=== PATIENT | male | born 1960 | race African-American/Black ===

== ENCOUNTER → 2018-10-15 | Outpatient (CLI) | payer OTHER ==
[2018-10-15 13:13] LABS: ALT 34 U/L (21-72); AST 19 U/L (17-59); Albumin 4.4 g/dL (3.5-5.0); Albumin/Globulin Ratio 1.7; Alkaline Phosphatase 92 U/L (38-126); Anion Gap 12 mmol/L; Blood Urea Nitrogen 17 mg/dL (9-20); Calcium 10.1 mg/dL (8.4-10.2); Carbon Dioxide 25 mmol/L (22-30); Chloride 99 mmol/L (98-107); Globulin 2.6 g/dL; Glucose 496 mg/dL (74-99); Magnesium 1.8 mg/dL (1.6-2.3); Potassium 5.2 mmol/L (3.5-5.1); Sodium 136 mmol/L (137-145); Total Bilirubin 0.3 mg/dL (0.2-1.3)
[2018-10-15 13:30] LABS: Basophils % (A) 1 %; Eosinophils # (A) 0.1 k/uL (0-0.7); Eosinophils % (A) 4 %; HCT 42.9 % (39.0-53.0); HGB 14.3 gm/dL (13.0-17.5); Lymphocytes # (A) 1.2 k/uL (1.0-4.8); Lymphocytes % (A) 36 %; MCH 29.2 pg (25.0-35.0); MCHC 33.3 g/dL (31.0-37.0); MCV 87.6 fL (80.0-100.0); Mean Platelet Volume 7.1; Monocytes # (A) 0.2 k/uL (0-1.0); Monocytes % (A) 6 %; Neutrophils # (A) 1.6 k/uL (1.3-7.7); Neutrophils % (A) 50 %; Platelet Count 257 k/uL (150-450); RBC 4.89 m/uL (4.30-5.90); RDW 12.9 % (11.5-15.5); WBC 3.3 k/uL (3.8-10.6)
[2018-10-15 17:07] LABS: Cholesterol 131 mg/dL (<200); HDL Cholesterol 35 mg/dL (40-60); LDL Cholesterol,Calculated 56 mg/dL (0-99); Triglycerides 202 mg/dL (<150)
== END | disposition home or self-care (01) ==
LOC: LABWHC1 12:01
PROVIDERS: ATTEND Family Medicine
DX: E11.65 Type 2 diabetes mellitus with hyperglycemia (principal); I10 Essential (primary) hypertension
CPT/HCPCS: 36415; 80053; 80061; 82009; 82607; 82746; 83735; 85025

== ENCOUNTER 2020-02-17 04:51 | Emergency (ER) | payer OTHER ==
[2020-02-17 05:01] VITALS: RESP 18
--- NOTE | 2020-02-17 05:07 | ED ---
Chest Pain HPI - General Chief Complaint: Chest Pain Stated Complaint: chest pain Time Seen by Provider: 02/17/20 05:05 Source: patient Mode of arrival: ambulatory Limitations: no limitations - History of Present Illness Initial Comments: This patient is 59-year-old man who presents to be evaluated for left-sided chest pain and left hand tingling. The patient states the symptoms came on approximately 90 minutes ago while he was trying to go to sleep. The patient states she also had a similar episode within the past week. The patient states the chest pain felt like at tightness, mild, and lasted 20-30 minutes. He did take two 81 mg aspirin, and the symptoms did resolve. He states he feels well now. No associated symptoms. MD Complaint: chest pain Onset/Timin -: minutes(s) Onset: during rest Pain Location: left chest Pain Radiation: LUE Severity: mild Quality: tightness Consistency: now resolved Improves With: other (Aspirin) Worsens With: nothing Treatments Prior to Arrival: aspirin - Related Data Home Medications Medication Instructions Recorded Confirmed Ibuprofen [Motrin] 800 mg PO Q8HR PRN 02/23/15 05/10/16 Omeprazole [PriLOSEC] 20 mg PO DAILY 02/23/15 05/10/16 metFORMIN HCL 1,000 mg PO AC-BID 02/23/15 05/10/16 Baclofen [Lioresal] 10 mg PO BID PRN 05/10/16 05/10/16 lisinopriL [Zestril] 10 mg PO DAILY 05/10/16 05/10/16 sitaGLIPtin [Januvia] 25 mg PO DAILY 05/10/16 05/10/16 Previous Rx's Medication Instructions Recorded Hydrocodone/Acetaminophen [[place] 1 - 2 each PO Q6HR PRN #20 tab 05/12/16 5-325] Allergies Allergy/AdvReac Type Severity Reaction Status Date / Time No Known Allergies Allergy Verified 05/10/16 14:38 Review of Systems ROS Statement: Those systems with pertinent positive or pertinent negative responses have been documented in the HPI. ROS Other: All systems not noted in ROS Statement are negative. Constitutional: Denies: fever, chills ENT: Denies: throat pain Respiratory: Denies: cough, dyspnea, wheezes Cardiovascular: Reports: chest pain. Denies: palpitations, dyspnea on exertion, orthopnea Gastrointestinal: Denies: abdominal pain, nausea, vomiting, diarrhea Genitourinary: Denies: dysuria, hematuria Musculoskeletal: Denies: back pain Skin: Denies: rash Neurological: Denies: headache, weakness, numbness, paresthesias EKG Findings - EKG Results: EKG: interpreted by RIDDHI BARRETO, sinus rhythm, normal axis, normal QRS, normal ST/T - Blocks, [place], Hypertrophy, ST Abn: Repolarization changes or abnormalities: nonspecific abnormality, ST segment, and/or T wave Past Medical History Past Medical History: Asthma, Diabetes Mellitus, GERD/Reflux, Hypertension, Musculoskeletal Disorder Additional Past Medical History / Comment(s): CHRONIC LOWER BACK PAIN History of Any Multi-Drug Resistant Organisms: None Reported Past Surgical History: No Surgical Hx Reported Past Anesthesia/Blood Transfusion Reactions: No Reported Reaction Past Psychological History: Depression Smoking Status: Former smoker Past Alcohol Use History: None Reported Past Drug Use History: None Reported - Past Family History Mother Family Medical History: No Reported History General Exam Limitations: no limitations General appearance: alert, in no apparent distress Head exam: Present: atraumatic, normocephalic Eye exam: Present: normal appearance. Absent: scleral icterus, conjunctival injection Neck exam: Present: normal inspection, full ROM Respiratory exam: Present: normal lung sounds bilaterally. Absent: respiratory distress, wheezes, rales, rhonchi, stridor Cardiovascular Exam: Present: regular rate, normal rhythm, normal heart sounds. Absent: systolic murmur, diastolic murmur, rubs, gallop GI/Abdominal exam: Present: soft. Absent: distended, tenderness, guarding, rebound, rigid, mass Extremities exam: Present: normal inspection, normal capillary refill. Absent: pedal edema, calf tenderness Back exam: Present: normal inspection. Absent: CVA tenderness (R), CVA tenderness (L) Neurological exam: Present: alert Skin exam: Present: warm, dry, intact, normal color. Absent: rash Course Vital Signs 02/17/20 02/17/20 04:56 06:01 Temperature 98.2 F Pulse Rate 78 76 Respiratory 18 18 Rate Blood Pressure 159/63 133/82 O2 Sat by Pulse 97 98 Oximetry Chest Pain [facility] This patient is a 59-year-old man who presents to be evaluated for chest pain. The initial workup is negative. The patient is symptom-free. We discussed admission to have serial cardiac enzymes and telemetry monitoring, but the patient states that he has some matters that he needs to attend to. We discussed close follow-up to see the business intelligence manager and possibly have a stress test. We discussed return parameters. Disposition Clinical Impression: Chest pain Disposition: HOME SELF-CARE Condition: Good Instructions (If sedation given, give patient instructions): Chest Pain (ED) Is patient prescribed a controlled substance at d/c from ED?: No Referrals: Enmanuel Lester MD [Primary Care Provider] - 1-2 days
--- NOTE | 2020-02-17 05:35 | XR ---
EXAMINATION TYPE: XR chest 2V DATE OF EXAM: 02/17/2020 COMPARISON: 05/11/2016 HISTORY: Chest pain TECHNIQUE: FINDINGS: Heart and mediastinum are normal. Lungs are clear. Diaphragm is normal. Bony thorax appears normal. Pulmonary vascularity is normal. IMPRESSION: Normal chest. No change.
[2020-02-17 05:43] LABS: Basophils % (A) 1 %; Eosinophils # (A) 0.3 k/uL (0-0.7); Eosinophils % (A) 6 %; HCT 43.8 % (39.0-53.0); HGB 14.6 gm/dL (13.0-17.5); Lymphocytes # (A) 2.1 k/uL (1.0-4.8); Lymphocytes % (A) 42 %; MCH 28.6 pg (25.0-35.0); MCHC 33.3 g/dL (31.0-37.0); MCV 85.7 fL (80.0-100.0); Mean Platelet Volume 7.2; Monocytes # (A) 0.4 k/uL (0-1.0); Monocytes % (A) 9 %; Neutrophils % (A) 39 %; Platelet Count 273 k/uL (150-450); RDW 12.7 % (11.5-15.5)
[2020-02-17 05:55] LABS: ALT 33 U/L (4-49); AST 26 U/L (17-59); African American GFR (CKD) >90 (>60 ml/min/1.73 sqM); Albumin 4.3 g/dL (3.5-5.0); Alkaline Phosphatase 83 U/L (38-126); Anion Gap 9 mmol/L; Blood Urea Nitrogen 19 mg/dL (9-20); Calcium 9.5 mg/dL (8.4-10.2); Carbon Dioxide 24 mmol/L (22-30); Chloride 101 mmol/L (98-107); Glucose 219 mg/dL (74-99); INR 0.9 (<1.2); Magnesium 1.6 mg/dL (1.6-2.3); Non-African American GFR(CKD) >90 (>60 ml/min/1.73 sqM); Partial Thromboplastin Time 22.6 sec (22.0-30.0); Potassium 4.6 mmol/L (3.5-5.1); Prothrombin Time 9.7 sec (9.0-12.0); Sodium 134 mmol/L (137-145); Total Bilirubin 0.3 mg/dL (0.2-1.3); Total Protein 6.8 g/dL (6.3-8.2)
[2020-02-17 06:59] VITALS: BP 139/86; PULSE 93; TEMP 98
== END 2020-02-17 06:58 | disposition home or self-care (01) ==
LOC: EC 04:51
DX: R07.9 Chest pain, unspecified (principal); E11.9 Type 2 diabetes mellitus without complications; K21.9 Gastro-esophageal reflux disease without esophagitis; I10 Essential (primary) hypertension; G89.29 Other chronic pain; M54.5 Low back pain; Z79.84 Long term (current) use of oral hypoglycemic drugs; Z79.899 Other long term (current) drug therapy; Z87.891 Personal history of nicotine dependence
CPT/HCPCS: 36415; 71046; 80053; 83735; 84484; 85025; 85610; 85730; 93005; 99285

== ENCOUNTER 2022-09-29 14:09 | Observation (INO) | payer OTHER ==
[2022-09-29] MEDS ORDERED: NITROGLYCERIN OINT 1 INCH/GM PACKET TOPICAL STA (14:28)
[2022-09-29] MEDS ORDERED: ASPIRIN 81 MG PO STA (14:28)
--- NOTE | 2022-09-29 14:30 | ED ---
General Adult HPI - General Chief complaint: Chest Pain Stated complaint: Chest Pain Time Seen by Provider: 09/29/22 14:15 Source: patient, RN notes reviewed, old records reviewed Mode of arrival: ambulatory Limitations: no limitations - History of Present Illness Initial comments: This is a 62-year-old male with a past medical history significant for high blood pressure diabetes and a strong family history of heart disease. Patient states about 45 minutes prior to arrival he started having some left-sided chest heaviness he states he also short of breath with it as particularly on exertion. Patient states he also became a little bit lightheaded. Patient denies any diaphoretic episodes. Patient denies any nausea. Patient states the pain still exists. Patient denies any recent fever chills or cough. Patient denies any abdominal pain patient denies nausea vomiting or diarrhea. Patient denies any leg swelling or calf tenderness. - Related Data Home Medications Medication Instructions Recorded Confirmed Ibuprofen [Motrin] 800 mg PO Q8HR PRN 02/23/15 05/10/16 Omeprazole [PriLOSEC] 20 mg PO DAILY 02/23/15 05/10/16 metFORMIN HCL [Glucophage] 1,000 mg PO AC-BID 02/23/15 05/10/16 Baclofen [Lioresal] 10 mg PO BID PRN 05/10/16 05/10/16 lisinopriL [Zestril] 10 mg PO DAILY 05/10/16 05/10/16 sitaGLIPtin [Januvia] 25 mg PO DAILY 05/10/16 05/10/16 Previous Rx's Medication Instructions Recorded Hydrocodone/Acetaminophen [[place] 1 - 2 each PO Q6HR PRN #20 tab 05/12/16 5-325] Allergies Allergy/AdvReac Type Severity Reaction Status Date / Time No Known Allergies Allergy Verified 09/29/22 14:11 Review of Systems ROS Statement: Those systems with pertinent positive or pertinent negative responses have been documented in the HPI. ROS Other: All systems not noted in ROS Statement are negative. Past Medical History Past Medical History: Asthma, Diabetes Mellitus, GERD/Reflux, Hypertension, Musculoskeletal Disorder Additional Past Medical History / Comment(s): CHRONIC LOWER BACK PAIN History of Any Multi-Drug Resistant Organisms: None Reported Past Surgical History: No Surgical Hx Reported Past Anesthesia/Blood Transfusion Reactions: No Reported Reaction Past Psychological History: Depression Smoking Status: Former smoker Past Alcohol Use History: None Reported Past Drug Use History: None Reported - Past Family History Mother Family Medical History: No Reported History General Exam - General Exam Comments Initial Comments: GENERAL: Patient is well-developed and well-nourished. Patient is nontoxic and well- hydrated and is in mild distress. ENT: Neck is soft and supple. No significant lymphadenopathy is noted. Oropharynx is clear. Moist mucous membranes. Neck has full range of motion without eliciting any pain. EYES: The sclera were anicteric and conjunctiva were pink and moist. Extraocular movements were intact and pupils were equal round and reactive to light. Eyelids were unremarkable. PULMONARY: Unlabored respirations. Good breath sounds bilaterally. No audible rales rhonchi or wheezing was noted. CARDIOVASCULAR: There is a regular rate and rhythm without any murmurs gallops or rubs. ABDOMEN: Soft and nontender with normal bowel sounds. No palpable organomegaly was noted. There is no palpable pulsatile mass. SKIN: Skin is clear with no lesions or rashes and otherwise unremarkable. NEUROLOGIC: Patient is alert and oriented x3. Cranial nerves II through XII are grossly intact. Motor and sensory are also intact. Normal speech, volume and content. Symmetrical smile. MUSCULOSKELETAL: Normal extremities with adequate strength and full range of motion. No lower extremity swelling or edema. No calf tenderness. LYMPHATICS: No significant lymphadenopathy is noted PSYCHIATRIC: Normal psychiatric evaluation. Limitations: no limitations Course Vital Signs 09/29/22 09/29/22 09/29/22 14:11 14:39 14:43 Temperature 97.6 F Pulse Rate 97 91 Pulse Rate [ 86 Practice Billing Associate ] Respiratory 16 18 Rate Blood Pressure 122/84 138/91 O2 Sat by Pulse 99 99 Oximetry Medical Decision Making - Medical Decision Making EKG was interpreted by myself shows sinus rhythm at 96 bpm AR interval is 169 QRS is 97 Q-T intervals 340 QTC is 41 per patient's EKG shows no ST segment el evation or depression. Was pt. sent in by a medical professional or institution (, [facility], [facility] [employer], urgent care, hospital, or snf...) When possible be specific @ -No Did you speak to anyone other than the patient for history (EMS, parent, family, police, friend...)? What history was obtained from this source @ -No Did you review nursing and triage notes (agree or disagree)? Why? @ -I reviewed and agree with nursing and triage notes Were old charts reviewed (outside hosp., previous admission, EMS record, old EKG, old radiological studies, urgent care reports/EKG's, snf records)? Report findings @ -No old charts were reviewed Differential Diagnosis (chest pain, altered mental status, abdominal pain women, abdominal pain men, vaginal bleeding, weakness, fever, dyspnea, syncope, headache, dizziness, GI bleed, back pain, seizure, CVA, palpatations, mental health, musculoskeletal)? @ -Differential Chest Pain: Stable Angina, Unstable Angina, STEMI, NSTEMI Aortic Dissection, Pneumothorax, Musculoskeletal, Esophageal Spasm GERD, Cholecystitis, Pancreatitis, Zoster, this is not meant to be an all-inclusive list. EKG interpreted by me (3pts min.). @ -As above X-rays interpreted by me (1pt min.). @ -Chest x-ray was interpreted by myself shows no acute abnormality. CT interpreted by me (1pt min.). @ -None done U/S interpreted by me (1pt. min.). @ -None done What testing was considered but not performed or refused? (CT, X-rays, U/S, labs)? Why? @ -None What meds were considered but not given or refused? Why? @ -None Did you discuss the management of the patient with other professionals (professionals i.e. , PA, WIRE COATER, lab, RT, psych nurse, social services designee, pharmacy affairs assistant, teacher, technology officer, window caser)? Give summary @ -Spoke to Dr. Nava he accepted the patient I wrote admitting Was smoking cessation discussed for >3mins.? @ -No Was critical care preformed (if so, how long)? @ -No Were there social determinants of health that impacted care today? How? (Homelessness, low income, unemployed, alcoholism, drug addiction, transportation, low edu. Level, literacy, decrease access to med. care, fpc, rehab)? @ -No Was there de-escalation of care discussed even if they declined (Discuss DNR or withdrawal of care, Hospice)? DNR status @ -No What co-morbidities impacted this encounter? (DM, HTN, Smoking, COPD, CAD, Canc er, CVA, ARF, Chemo, Hep., AIDS, mental health diagnosis, sleep apnea, morbid obesity)? @ -None Was patient admitted / discharged? Hospital course, mention meds given and route, prescriptions, significant lab abnormalities, going to OR and other pertinent info. @ -Patient had sudden onset of chest pain approximately 45 minutes prior to arrival. Patient aspirin and Nitropaste emergency department. Patient's EKG shows no acute abnormality. Patient's troponin was negative. Patient's chest x-ray was normal. I spoke to Dr. Nava and he agreed to admit the patient admitted the patient wrote admitting or psych consult cardiology. Undiagnosed new problem with uncertain prognosis? @ -No Drug Therapy requiring intensive monitoring for toxicity (Heparin, Nitro, Insulin, Cardizem)? @ -No Were any procedures done? @ -No Diagnosis/symptom? @ -Chest pain Acute, or Chronic, or Acute on Chronic? @ -Acute Uncomplicated (without systemic symptoms) or Complicated (systemic symptoms)? @ -Complicated Side effects of treatment? @ -No Exacerbation, Progression, or Severe Exacerbation? @ -No Poses a threat to life or bodily function? How? (Chest pain, [place], [place], pneumonia, PE, COPD, DKA, ARF, appy, cholecystitis, CVA, Diverticulitis, Homicidal, Suicidal, threat to staff... and all critical care pts) @ -Yes this could lead to myocardial infarction with complete end organ dysfunction - Lab Data Result diagrams: 09/29/22 14:33 09/29/22 14:33 Lab Results 09/29/22 09/29/22 09/29/22 Range/Units 14:33 14:33 14:33 WBC 3.8 (3.8-10.6) k/uL RBC 4.74 (4.30-5.90) m/uL Hgb 14.4 (13.0-17.5) gm/dL Hct 39.9 (39.0-53.0) % MCV 84.1 (80.0-100.0) fL MCH 30.3 (25.0-35.0) pg MCHC 36.0 (31.0-37.0) g/dL RDW 12.6 (11.5-15.5) % Plt Count 273 (150-450) k/uL MPV 7.2 Neutrophils % 48 % Lymphocytes % 36 % Monocytes % 7 % Eosinophils % 6 % Basophils % 0 % Neutrophils # 1.8 (1.3-7.7) k/uL Lymphocytes # 1.3 (1.0-4.8) k/uL Monocytes # 0.3 (0-1.0) k/uL Eosinophils # 0.2 (0-0.7) k/uL Basophils # 0.0 (0-0.2) k/uL PT 9.8 (9.0-12.0) sec INR 0.9 (<1.2) APTT 21.8 L (22.0-30.0) sec Sodium 136 L (137-145) mmol/L Potassium 4.3 (3.5-5.1) mmol/L Chloride 100 (98-107) mmol/L Carbon Dioxide 27 (22-30) mmol/L Anion Gap 9 mmol/L BUN 13 (9-20) mg/dL Creatinine 0.84 (0.66-1.25) mg/dL Est GFR (CKD-EPI)AfAm >90 (>60 ml/min/1.73 sqM) Est GFR (CKD-EPI)NonAf >90 (>60 ml/min/1.73 sqM) Glucose 286 H (74-99) mg/dL Calcium 9.3 (8.4-10.2) mg/dL Magnesium 1.7 (1.6-2.3) mg/dL Total Bilirubin 0.2 (0.2-1.3) mg/dL AST 32 (17-59) U/L ALT 50 H (4-49) U/L Alkaline Phosphatase 77 (38-126) U/L Troponin I (0.000-0.034) ng/mL Total Protein 7.3 (6.3-8.2) g/dL Albumin 4.4 (3.5-5.0) g/dL 09/29/22 Range/Units 14:33 WBC (3.8-10.6) k/uL RBC (4.30-5.90) m/uL Hgb (13.0-17.5) gm/dL Hct (39.0-53.0) % MCV (80.0-100.0) fL MCH (25.0-35.0) pg MCHC (31.0-37.0) g/dL RDW (11.5-15.5) % Plt Count (150-450) k/uL MPV Neutrophils % % Lymphocytes % % Monocytes % % Eosinophils % % Basophils % % Neutrophils # (1.3-7.7) k/uL Lymphocytes # (1.0-4.8) k/uL Monocytes # (0-1.0) k/uL Eosinophils # (0-0.7) k/uL Basophils # (0-0.2) k/uL PT (9.0-12.0) sec INR (<1.2) APTT (22.0-30.0) sec Sodium (137-145) mmol/L Potassium (3.5-5.1) mmol/L Chloride (98-107) mmol/L Carbon Dioxide (22-30) mmol/L Anion Gap mmol/L BUN (9-20) mg/dL Creatinine (0.66-1.25) mg/dL Est GFR (CKD-EPI)AfAm (>60 ml/min/1.73 sqM) Est GFR (CKD-EPI)NonAf (>60 ml/min/1.73 sqM) Glucose (74-99) mg/dL Calcium (8.4-10.2) mg/dL Magnesium (1.6-2.3) mg/dL Total Bilirubin (0.2-1.3) mg/dL AST (17-59) U/L ALT (4-49) U/L Alkaline Phosphatase (38-126) U/L Troponin I <0.012 (0.000-0.034) ng/mL Total Protein (6.3-8.2) g/dL Albumin (3.5-5.0) g/dL Disposition Clinical Impression: Chest pain Disposition: ADMITTED IP TO THIS HOSP Referrals: Diana Pierre MD [Primary Care Provider] - 1-2 days Time of Disposition: 15:23
[2022-09-29 14:46] LABS: Basophils % (A) 0 %; Eosinophils # (A) 0.2 k/uL (0-0.7); Eosinophils % (A) 6 %; HCT 39.9 % (39.0-53.0); HGB 14.4 gm/dL (13.0-17.5); Lymphocytes # (A) 1.3 k/uL (1.0-4.8); Lymphocytes % (A) 36 %; MCH 30.3 pg (25.0-35.0); MCV 84.1 fL (80.0-100.0); Mean Platelet Volume 7.2; Monocytes # (A) 0.3 k/uL (0-1.0); Monocytes % (A) 7 %; Neutrophils # (A) 1.8 k/uL (1.3-7.7); Neutrophils % (A) 48 %; Platelet Count 273 k/uL (150-450); RBC 4.74 m/uL (4.30-5.90); RDW 12.6 % (11.5-15.5); WBC 3.8 k/uL (3.8-10.6)
[2022-09-29 14:52] LABS: ALT 50 U/L (4-49); AST 32 U/L (17-59); African American GFR (CKD) >90 (>60 ml/min/1.73 sqM); Albumin 4.4 g/dL (3.5-5.0); Alkaline Phosphatase 77 U/L (38-126); Anion Gap 9 mmol/L; Blood Urea Nitrogen 13 mg/dL (9-20); Calcium 9.3 mg/dL (8.4-10.2); Carbon Dioxide 27 mmol/L (22-30); Chloride 100 mmol/L (98-107); Glucose 286 mg/dL (74-99); Magnesium 1.7 mg/dL (1.6-2.3); Non-African American GFR(CKD) >90 (>60 ml/min/1.73 sqM); Potassium 4.3 mmol/L (3.5-5.1); Sodium 136 mmol/L (137-145); Total Bilirubin 0.2 mg/dL (0.2-1.3); Total Protein 7.3 g/dL (6.3-8.2)
--- NOTE | 2022-09-29 14:55 | XR ---
EXAMINATION TYPE: XR chest 2V DATE OF EXAM: 09/29/2022 COMPARISON: 02/17/2020 HISTORY: Chest pain TECHNIQUE: Frontal and lateral views of the chest are obtained. FINDINGS: The lungs are clear of consolidative or abnormal interstitial opacity. There is no pleural effusion, pleural thickening or pneumothorax. The heart, pulmonary vasculature, mediastinum and hilum appear normal. The osseous structures soft tissues unremarkable. IMPRESSION: No significant abnormality seen.
[2022-09-29 14:57] LABS: INR 0.9 (<1.2)
[2022-09-29 14:58] LABS: Prothrombin Time 9.8 sec (9.0-12.0)
[2022-09-29 15:12] LABS: Partial Thromboplastin Time 21.8 sec (22.0-30.0)
[2022-09-29] MEDS ORDERED: NITROGLYCERIN SL TABS 0.4 MG TAB SUBLINGUAL PRN (15:24)
[2022-09-29] MEDS: NITROGLYCERIN OINT 1 INCH/GM PACKET TOPICAL SCH (17:29)
[2022-09-29 21:34] LABS: Glucose,Whole Blood 357 mg/dL (70-110)
[2022-09-29] MEDS: GABAPENTIN 300 MG CAP PO SCH (22:25)
[2022-09-29] MEDS: INSULIN ASPART (NovoLOG) 100 UNIT/ML VIAL SQ SCH (22:25)
[2022-09-29] MEDS ORDERED: CYCLOBENZAPRINE 5 MG TAB PO PRN (22:30)
--- NOTE | 2022-09-29 23:29 | P.HPIM ---
History of Present Illness H&P Date: 09/29/22 Chief Complaint: Chest pain Patient is a 62-year-old male with a known history of diabetes type 2 insulin- dependent, hypertension, GERD, chronic low back pain, depression and prior history of smoking presents to ER with complaints of chest pain mainly below the left pectoral region. [place] like heaviness in the chest. Associated shortness of breath. Patient apparently was driving home and suddenly started having chest pain and shortness of breath. Patient was still having shortness of breath upon reaching home and came to ER due to symptoms not relieving. Denies any associated nausea or vomiting. No diaphoresis or lightheadedness. No fever no chills. Denies any palpitations. No leg swelling or pain. Denies any recent illnesses. Denies any recent use of pain medications including ibuprofen. Patient states that he did check his blood pressure recently at his friend's house and systolic blood pressure was greater than 170s. Patient missed his losartan dose that day. However his patient states that his blood pressure is controlled. Chest x-ray showed no acute abnormality seen. EKG showed sinus rhythm with left axis deviation. Laboratory test showed WBC 3.8 hemoglobin 14.4 and platelets 273 Sodium 136 potassium 4.3 chloride 100 bicarb is 27 BUN 13 and creatinine 0.84 and blood sugar is 286 Magnesium 1.7. AST 32 and ALT 50 alk phos 77 Troponin x2 negative. Albumin 4.4 Review of Systems Constitutional: Patient denies any fever or chills . no Generalized weakness. Abdomen: Patient denied any nausea or vomiting or abd. pain Cardiovascular: Patient denies any chest pain or short of breath no palpitations. Respiratory: patient denied any cough . no sputum production. No shortness of breath Neurologic: Patient denied any numbness or tingling headache. Musculoskeletal: Patient denies any complaints of joint swelling or deformity. Skin: Negative Psychiatric: Negative Endocrine: No heat or cold intolerance. No recent weight gain. Genitourinary: No dysuria or hematuria. All other 14 point ROS negative except the above Past Medical History Past Medical History: Asthma, Diabetes Mellitus, GERD/Reflux, Hypertension, Musculoskeletal Disorder Additional Past Medical History / Comment(s): CHRONIC LOWER BACK PAIN History of Any Multi-Drug Resistant Organisms: None Reported Past Surgical History: No Surgical Hx Reported Past Anesthesia/Blood Transfusion Reactions: No Reported Reaction Past Psychological History: Depression Smoking Status: Former smoker Past Alcohol Use History: None Reported Past Drug Use History: None Reported - Past Family History Mother Family Medical History: No Reported History Medications and Allergies Home Medications Medication Instructions Recorded Confirmed Type metFORMIN HCL [Glucophage] 1,000 mg PO BID-W/MEALS 02/23/15 09/29/22 History lisinopriL [Zestril] 10 mg PO DAILY 05/10/16 09/29/22 History Cyclobenzaprine [Flexeril] 5 mg PO BID PRN 09/29/22 09/29/22 History Dulaglutide [Trulicity] 0.75 mg SQ DIRECTED 09/29/22 09/29/22 History Ergocalciferol (Vitamin D2) 1,250 mcg PO CHEN 09/29/22 09/29/22 History [Drisdol (50,000 Iu)] Gabapentin 600 mg PO TID 09/29/22 09/29/22 History Insulin Glargine,Hum.rec.anlog 20 units SQ DAILY 09/29/22 09/29/22 History [Lantus Solostar Pen] Pioglitazone [Actos] 30 mg PO DAILY 09/29/22 09/29/22 History sitaGLIPtin [Januvia] 50 mg PO DAILY 09/29/22 09/29/22 History Allergies Allergy/AdvReac Type Severity Reaction Status Date / Time No Known Allergies Allergy Verified 09/29/22 16:38 Physical Exam Vitals: Vital Signs Temp Pulse Pulse Resp BP Pulse Ox 09/29/22 15:26 93 17 145/94 99 09/29/22 14:43 91 18 138/91 99 09/29/22 14:39 86 09/29/22 14:11 97.6 F 97 16 122/84 99 Intake and Output 09/29/22 09/29/22 09/29/22 06:59 14:59 22:59 Other: Weight 97.069 kg PHYSICAL EXAMINATION: Patient is lying in the bed comfortably, no acute distress, awake alert and oriented.. HEENT: Normocephalic. Neck is supple. Pupils reactive. Nostrils clear. Oral cavity is moist. Neck reveals no JVD, carotid bruits, or thyromegaly. CHEST EXAMINATION: Trachea is central. Symmetrical expansion. Lung hamm clear to auscultation and percussion. CARDIAC: Normal S1, S2 with no gallops. No murmurs ABDOMEN: Soft. Bowel sounds present. Nontender. No organomegaly. No abdominal bruits. Extremities: reveal no edema. No clubbing or cyanosis Neurologically awake, alert, oriented x3 with well-coordinated movements. No focal deficits noted Skin: No rash or skin lesions. Psychiatric: Coperative. Nonsuicidal, Musculoskeletal: No joint swelling or deformity. Normal range of motion. Results CBC & Chem 7: 09/29/22 14:33 09/29/22 14:33 Labs: Abnormal Lab Results - Last 24 Hours (Table) 09/29/22 09/29/22 Range/Units 14:33 14:33 APTT 21.8 L (22.0-30.0) sec Sodium 136 L (137-145) mmol/L Glucose 286 H (74-99) mg/dL ALT 50 H (4-49) U/L Thrombosis Risk Factor Assmnt - DVT/VTE Prophylaxis DVT/VTE Prophylaxis: Pharmacologic Prophylaxis ordered Assessment and Plan Assessment: Atypical chest pain. Ruled out ACS. Possible gastritis cannot be excluded. Hyperglycemia with uncontrolled diabetes type 2 insulin-dependent Chronic GERD, was on Prilosec previously Hypertension Chronic low back pain Depression Prior history of smoking GI and DVT prophylaxis with PPI and heparin subcu Plan: Patient will be continued on telemetry monitoring. Serial EKG and troponin x3. Cardiology evaluation. Continue with insulin sliding scale and Levemir and titrate dose as needed for better blood sugar control. Continue PPI. Ordered lipid panel. Continue home medications. Follow-up closely. Time with Patient: Greater than 30
[2022-09-29] MEDS ORDERED: INSULIN DETEMIR (LEVEMIR) 100 UNIT/ML SYR SQ ONE (23:30)
[2022-09-30 00:28] LABS: Glucose,Whole Blood 346 mg/dL (70-110)
[2022-09-30] MEDS: MAGNESIUM SULFATE-D5W PMX 1 GM in DEXTROSE/WATER 1 100ML.BAG IVPB SCH ×2 (00:31→02:07)
[2022-09-30] MEDS: HEPARIN SODIUM,PORCINE/PF 5,000 UNIT/0.5 ML SYRINGE SQ SCH ×2 (00:32→08:09)
[2022-09-30] MEDS: NITROGLYCERIN OINT 1 INCH/GM PACKET TOPICAL SCH ×3 (00:32→11:33)
[2022-09-30 04:12] VITALS: RESP 16
[2022-09-30 06:11] LABS: Glucose,Whole Blood 224 mg/dL (70-110)
[2022-09-30] MEDS: INSULIN ASPART (NovoLOG) 100 UNIT/ML VIAL SQ SCH ×2 (06:23→13:28)
[2022-09-30] MEDS ORDERED: PANTOPRAZOLE 40 MG TABLET PO SCH (07:30)
[2022-09-30] MEDS: GABAPENTIN 300 MG CAP PO SCH (08:09)
[2022-09-30 08:56] VITALS: BP 139/74; PULSE 92; TEMP 98.1
[2022-09-30] MEDS ORDERED: INSULIN DETEMIR (LEVEMIR) 100 UNIT/ML SYR SQ SCH (09:00)
[2022-09-30] MEDS ORDERED: ATORVASTATIN 40 MG TAB PO SCH (09:00)
[2022-09-30] MEDS ORDERED: lisinopriL 10 MG TAB PO SCH (09:00)
[2022-09-30] MEDS ORDERED: ASPIRIN 325 MG TAB PO SCH (09:00)
[2022-09-30 09:30] LABS: African American GFR (CKD) 104.2 (60.0-200.0); BUN/Creat Ratio 12.89 Ratio (12.00-20.00); Blood Urea Nitrogen 11.6 mg/dL (9.0-27.0); Calcium 8.9 mg/dL (8.7-10.3); Carbon Dioxide 23.7 mmol/L (20.0-27.5); Chloride 102 mmol/L (96-109); Chol/HDL Ratio 3.88 Ratio; Glucose 245 mg/dL (70-110); LDL Cholesterol,Calculated 86.2 mg/dL (0.0-131.0); Non-African American GFR(CKD) 89.9 (60.0-200.0); Potassium 4.4 mmol/L (3.5-5.5); Sodium 135 mmol/L (135-145); VLDL Calculation 19.92 mg/dL (5.00-40.00)
--- NOTE | 2022-09-30 12:29 | CA ---
Transthoracic Echo Report Name: Benja Ortega Age: 62 Gender: M : 1960 Exam Date: 09/30/2022 10:15 Exam Location: [facility] Ht (in): 71 Wt (lb): 214 Ordering Physician: Ronna Trejo Attending/Referring Phys: [id number], Neil Environmental Services Director Bautista Kimball RDCS Procedure CPT: Indications: LVF Cardiac Hx: Technical Quality: Fair Contrast 1: Total Dose (mL): Contrast 2: Total Dose (mL): MEASUREMENTS (Male / Female) Normal Values 2D ECHO LV Diastolic Diameter PLAX 4.5 cm 4.2 - 5.9 / 3.9 - 5.3 cm LV Systolic Diameter PLAX 3.2 cm IVS Diastolic Thickness 1.1 cm 0.6 - 1.0 / 0.6 - 0.9 cm LVPW Diastolic Thickness 1.2 cm 0.6 - 1.0 / 0.6 - 0.9 cm LV Relative Wall Thickness 0.5 RV Internal Dim ED PLAX 2.7 cm M-MODE Aortic Root Diameter MM 3.0 cm AV Cusp Separation MM 1.8 cm DOPPLER AV Peak Velocity 123.9 cm/s AV Peak Gradient 6.1 mmHg LVOT Peak Velocity 96.1 cm/s LVOT Peak Gradient 3.7 mmHg MV Area PHT 8.6 cm??? Mitral E Point Velocity 74.7 cm/s Mitral A Point Velocity 102.7 cm/s Mitral E to A Ratio 0.7 MV Deceleration Time 87.8 ms FINDINGS Left Ventricle Mildly increased septal wall thickness. Grade 1 diastolic dysfunction. Left ventricular cavity size normal. Left ventricular ejection fraction is estimated at 55 %. Right Ventricle Normal right ventricular size and function. Right ventricular systolic pressure within normal limits. Right Atrium Normal right atrial size. Left Atrium Normal left atrial size. Mitral Valve Mild mitral regurgitation. Aortic Valve Trileaflet aortic valve. No aortic regurgitation. No aortic stenosis. Tricuspid Valve Structurally normal tricuspid valve. No tricuspid regurgitation. No tricuspid stenosis. Pulmonic Valve Structurally normal pulmonic valve. Pericardium No pericardial or pleural effusion. Echo free space anterior to the right ventricle likely represents a fat pad. Aorta Normal size aortic root and proximal ascending aorta. CONCLUSIONS Normal LV size and systolic function mild diastolic dysfunction mild mitral and tricuspid regurgitation. No pericardial effusion. No pulmonary hypertension Previewed by: Dr. Camron Martin MD (Electronically Signed) Final Date: 30 September 2022 12:28
[2022-09-30 12:48] LABS: Glucose,Whole Blood 320 mg/dL (70-110)
--- NOTE | 2022-09-30 14:13 | CONS ---
CONSULTATION HISTORY OF PRESENT ILLNESS: Mr. Ortega is a 62-year-old gentleman who has history of type 2 diabetes under poor control, hypertension and also presented with atypical chest pain. This gentleman has history of diabetes mellitus with poor control and I last saw him in 2018 following a cardiac cath from right radial approach performed at [facility] on 11/13/2018. Cardiac cath at that time revealed that he had a right-dominant system. Normal filling pressures. No significant gradient. He also had ejection fraction of 50% on the LV-gram and minor irregularities without significant CAD. Since then, he has not followed up. He presents here to the hospital with complaints of very atypical type symptoms. He was apparently at home when he felt some tightness and pressure, lasted 45 minutes and also had some blurring of vision. He thought his blood sugars were off and then he came into the hospital. His blurring symptoms are related to his variations in blood sugar. He is resting comfortably. No further chest pain. Three sets of troponins are normal. EKG is unremarkable. He is on lisinopril, but not on a statin. At the time of my evaluation, he is virtually asymptomatic. PAST MEDICAL HISTORY: 1. Unremarkable cardiac cath in October 2018. 2. Type 2 diabetes mellitus with poor control. 3. Hyperlipidemia. 4. History of atypical chest pain. PHYSICAL EXAMINATION: VITAL SIGNS: Stable. NECK: There is no JVD or carotid bruit. HEART: S1 and S2 are heard normally. No rub, murmur or gallop. LUNGS: Clear. ABDOMEN: Unremarkable. LOWER EXTREMITIES: Unremarkable. DIAGNOSTIC DATA: EKG revealed sinus mechanism, no acute changes. LABORATORY DATA: Revealed unremarkable troponins. IMPRESSION: 1. Atypical chest pain. 2. Uncontrolled diabetes mellitus but A1c apparently is 9.0, much better than 11 or 13 that he had before. 3. Hyperlipidemia. RECOMMENDATIONS: I am recommending that we optimize blood sugar control, perform echocardiogram, add a statin, increase activity, and I will see him in the office within a week and perform outpatient stress testing. Discussed my thoughts in detail with the patient. Advised him to follow up. The patient is not a smoker. He quit smoking more than 12 years ago. MMODL / IJN: [id number] /
--- NOTE | 2022-09-30 16:20 | US ---
EXAMINATION TYPE: US carotid duplex BILAT DATE OF EXAM: 09/30/2022 COMPARISON: NONE CLINICAL HISTORY: severe PVD. Pt states recent vision changes TECHNIQUE: Carotid duplex ultrasound examination. Indirect Doppler criteria was utilized. FINDINGS: EXAM MEASUREMENTS: RIGHT: Peak Systolic Velocity (PSV) cm/sec ----- Right CCA: 90.1 ----- Right ICA: 119 ----- Right ECA: 117 ICA/CCA ratio: 1.3 RIGHT: End Diastole cm/sec ----- Right CCA: 22.0 ----- Right ICA: 30.8 ----- Right ECA: 15.4 LEFT: Peak Systolic Velocity (PSV) cm/sec ----- Left CCA: 59.7 ----- Left ICA: 75.3 ----- Left ECA: 66.7 ICA/CCA ratio: 1.3 LEFT: End Diastole cm/sec ----- Left CCA: 14.3 ----- Left ICA: 27.5 ----- Left ECA: 9.7 VERTEBRALS (direction of flow): Right Vertebral: Antegrade Left Vertebral: Antegrade Rhythm: Normal ENROBER NOTES: Soft plaque bilaterally without evidence of significant elevated velocities bilaterally IMPRESSION: 1. No significant flow limiting stenosis based on ultrasound velocities. 2. Some atheromatous plaquing is present bilaterally. Criteria for Assigning % of Stenosis / Diameter reduction (Estimation based on the indirect measurements of the internal carotid artery velocities (ICA PSV). 1. Normal (no stenosis)=ICA PSV < 125 cm/s: ratio < 2.0: ICA EDV<40 cm/s. 2. Less than 50% stenosis=ICA PSV < 125 cm/s: ratio < 2.0: ICA EDV<40 cm/s. 3. 50 to 69% stenosis=ICA PSV of 125 to 230 cm/s: ration 2.0 ? 4.0: ICA EDV 40-100 cm/s. 4. Greater than 70% stenosis to near occlusion= ICA PSV > 230 cm/s: ratio > 4.0: ICA EDV > 100 cm/s. 5. Near occlusion= ICA PSV velocities may be low or undetectable: variable ratio and ICA EDV. 6. Total occlusion=unable to detect flow.
--- NOTE | 2022-10-01 06:41 | P.DS ---
Providers Date of admission: 09/29/22 15:24 Expected date of discharge: 09/30/22 Attending physician: Jose D Nava Consults: 09/29/22 15:24 Consult Physician Urgent Consulting Provider: [facility] Consult Reason/Comments: Chest pain Do you want consulting provider notified?: Yes Primary care physician: Diana Pierre Hospital Course: Final diagnosis Atypical chest pain. Ruled out ACS. Possible gastritis cannot be excluded. Hyperglycemia with uncontrolled diabetes type 2 insulin-dependent Chronic GERD, was on Prilosec previously Hypertension Chronic low back pain Depression Prior history of smoking GI and DVT prophylaxis Discharge disposition Patient is being discharged in a stable condition with guarded prognosis to home. Patient will follow-up with Dr. Pierre in the outpatient setting upon discharge. Patient is to follow-up with cardiology this for outpatient stress testing as scheduled. Total time taken is greater than 35 minutes. Hospital course This is a 62-year-old male who was recently admitted chest pain and evaluated by cardiology. Patient undergoing 2-D echo and is being scheduled for outpatient stress testing this . Patient has been cleared by cardiology for discharge today. Please refer to cardiology for further HPI. Patient reports to feeling well and would like to go home. Currently no reports of chest pain, shortness of breath, or palpitations. Patient is afebrile. No reports of nausea or vomiting and patient is tolerating diet. Patient will be discharged home today. Guarded prognosis. Physical exam: Gen: This is a 62-year-old male who is awake, alert and oriented 3, well- developed, well-nourished HEENT: Head is atraumatic, normocephalic. Pupils equal, round. Sclerae is anicteric. NECK: Supple. No JVD. No lymphadenopathy. No thyromegaly. LUNGS: Clear to auscultation. No wheezes or rhonchi. No intercostal retractions. HEART: S1, S2 are muffled ABDOMEN: Soft. Bowel sounds are present. No masses. No tenderness. EXTREMITIES: No pedal edema. No calf tenderness. NEUROLOGICAL: Patient is awake, alert and oriented x3. Cranial nerves 2 through 12 are grossly intact. Please refer to medication reconciliation sheet for a list of medications. The impression and plan of care has been dictated by Octavia Correa, Nurse Practitioner as directed. Dr. Moose MD I have performed a history and examination and MDM of this patient, discussed the same with the dictator, and agree with the dictator's assessment and plan as written ,documented as a scribe. Based on total visit time, I have performed more than 50% of the visit. Patient Condition at Discharge: Stable Plan - Discharge Summary Discharge Rx Participant: No New Discharge Prescriptions: New Aspirin 81 mg PO DAILY #30 tab Atorvastatin [Lipitor] 40 mg PO DAILY #30 tab Nitroglycerin Sl Tabs [Nitrostat] 0.4 mg SUBLINGUAL Q5M PRN #30 tab PRN Reason: Chest Pain Continue metFORMIN HCL [Glucophage] 1,000 mg PO BID-W/MEALS lisinopriL [Zestril] 10 mg PO DAILY sitaGLIPtin [Januvia] 50 mg PO DAILY Gabapentin 600 mg PO TID Pioglitazone [Actos] 30 mg PO DAILY Insulin Glargine,Hum.rec.anlog [Lantus Solostar Pen] 20 units SQ DAILY Cyclobenzaprine [Flexeril] 5 mg PO BID PRN PRN Reason: Muscle Pain Ergocalciferol (Vitamin D2) [Drisdol (50,000 Iu)] 1,250 mcg PO CHEN Dulaglutide [Trulicity] 0.75 mg SQ DIRECTED Discharge Medication List metFORMIN HCL [Glucophage] 1,000 mg PO BID-W/MEALS 02/23/15 [History] lisinopriL [Zestril] 10 mg PO DAILY 05/10/16 [History] Cyclobenzaprine [Flexeril] 5 mg PO BID PRN 09/29/22 [History] Dulaglutide [Trulicity] 0.75 mg SQ DIRECTED 09/29/22 [History] Ergocalciferol (Vitamin D2) [Drisdol (50,000 Iu)] 1,250 mcg PO CHEN 09/29/22 [History] Gabapentin 600 mg PO TID 09/29/22 [History] Insulin Glargine,Hum.rec.anlog [Lantus Solostar Pen] 20 units SQ DAILY 09/29/22 [History] Pioglitazone [Actos] 30 mg PO DAILY 09/29/22 [History] sitaGLIPtin [Januvia] 50 mg PO DAILY 09/29/22 [History] Aspirin 81 mg PO DAILY #30 tab 09/30/22 [Rx] Atorvastatin [Lipitor] 40 mg PO DAILY #30 tab 09/30/22 [Rx] Nitroglycerin Sl Tabs [Nitrostat] 0.4 mg SUBLINGUAL Q5M PRN #30 tab 09/30/22 [Rx] Follow up Appointment(s)/Referral(s): Camron Martin MD [STAFF PHYSICIAN] - 10/03/22 2:00 pm Diana Pierre MD [Primary Care Provider] - 1-2 days Patient Instructions/Handouts: Chest Pain (DC) Activity/Diet/Wound Care/Special Instructions: Activity Limited until follow-up Follow-up with cardiology outpatient to schedule outpatient stress testing Continue taking medications as prescribed Follow-up with primary care provider on discharge Continue heart healthy diabetic diet Discharge Disposition: HOME SELF-CARE
== END 2022-09-30 13:33 | disposition home or self-care (01) ==
LOC: EC 14:09 → 6NMEDSUR 15:24 → INTOOBSV 15:24 → 6NMEDSUR 17:13
PROVIDERS: ADMIT Internal Medicine; ATTEND Internal Medicine
DX: R07.89 Other chest pain (principal); E11.65 Type 2 diabetes mellitus with hyperglycemia; J45.909 Unspecified asthma, uncomplicated; K21.9 Gastro-esophageal reflux disease without esophagitis; I10 Essential (primary) hypertension; G89.29 Other chronic pain; M54.50 Low back pain, unspecified; E78.5 Hyperlipidemia, unspecified; F32.A Depression, unspecified; Z87.891 Personal history of nicotine dependence; Z79.1 Long term (current) use of non-steroidal anti-inflammatories (NSAID); Z79.84 Long term (current) use of oral hypoglycemic drugs; Z79.899 Other long term (current) drug therapy; Z82.49 Family history of ischemic heart disease and other diseases of the circulatory system; Z79.4 Long term (current) use of insulin; Z79.85 Long-term (current) use of injectable non-insulin antidiabetic drugs
CPT/HCPCS: 96365; 96366; 96372 ×2; 99285; 36415; 94760; 93005; 93306; 80061; 80053; 80048; 83735; 84484; 85025; 85610; 85730; 83036; 71046; 93880; G0378 ×2; J3475; J1644

== ENCOUNTER 2024-02-17 02:08 | Emergency (ER) | payer OTHER | END 2024-02-17 08:05 | disposition home or self-care (01) | LOC: EC 02:08 | CPT/HCPCS: 99283 ==